=== PATIENT | female | born 1985 | race Caucasian/White ===

== ENCOUNTER 2016-07-08 07:49 | Emergency (ER) | payer MEDICAID ==
[~2016-07-08] VITALS: Ht 157.5 cm; Wt 78.0 kg
[~2016-07-08 07:49] MED LIST: ALBU8.5H3 INH; GUAI118L94 PO
[2016-07-08 07:54] VITALS: Ht 157.5 cm; Wt 78.0 kg
[2016-07-08] MEDS ORDERED: IBUP800T25 PO (08:31)
[2016-07-08] MEDS ORDERED: UDROBDM PO (08:31)
[2016-07-08] MEDS ORDERED: SODI126M NASAL (08:32)
[2016-07-08] MEDS ORDERED: ACET500C5 PO (08:32)
[2016-07-08] MEDS ORDERED: HYDR-906 PO (08:34)
--- NOTE | 2016-07-08 08:39 | ERD ---
ER Documentation Chief Complaint Date/Time DATE: 07/08/16 TIME: 08:36 Chief Complaint flu like symptoms x 1 week HPI Patient presents with symptoms consistent with a viral syndrome and the last week. Symptoms include fever, headache, cough, body aches, runny nose. She has taken Advil for the pain. Denies any vomiting or diarrhea ROS All systems reviewed and are negative except as per history of present illness. Medications Home Meds Active Scripts Hydrocodone/Acetaminophen ([place] 5-325 Tablet) 1 Each Tablet, 1 TAB PO Q6H Y for PAIN, #12 TAB Prov:MARIEL DE LA CRUZ PA-C 07/08/16 Sodium Chloride (Saline Nasal Mist) 126 Ml Mist, 1 SPRAY NASAL BID, #1 BOTTLE Prov:MARIEL DE LA CRUZ PA-C 07/08/16 Acetaminophen* (Tylophen*) 500 Mg Capsule, 1 CAP PO Q6H Y for PAIN AND OR ELEVATED TEMP, #30 CAP Prov:MARIEL DE LA CRUZ PA-C 07/08/16 Guaifenesin-Dextromethorphan* (Robitussin* DM) 100MG/10MG/5ML Syrup, 10 ML PO Q4H Y for COUGH for 5 Days, ML Prov:MARIEL DE LA CRUZ PA-C 07/08/16 Ibuprofen* (Motrin*) 800 Mg Tab, 800 MG PO Q6, #30 TAB Prov:MARIEL DE LA CRUZ PA-C 07/08/16 Albuterol Sulfate* (Proair HFA*) 8.5 Gm Hfa.aer.ad, 2 PUFF INH Q4H Y for WHEEZING AND SOB, #1 INHALER Prov:LAURA MEJIA NP 01/14/16 Guaifenesin-Codeine Phosphate* (Guaifenesin* with Codeine Liq) 120 Ml Liquid, 5 ML PO Q4H for COUGH, #60 ML Prov:LAURA MEJIA NP 01/14/16 Reported Medications [none] Unknown Strength No Conflict Check 01/14/16 Allergies Allergies: Coded Allergies: No Known Allergy (Unverified , 07/08/16) PMhx/Soc Medical and Surgical Hx: pt denies Medical Hx, pt denies Surgical Hx History of Surgery: No Anesthesia Reaction: No Hx Neurological Disorder: No Hx Respiratory Disorders: No Hx Cardiac Disorders: No Hx Psychiatric Problems: No Hx Miscellaneous Medical Probl: No Hx Alcohol Use: No Hx Substance Use: No Hx Tobacco Use: No Smoking Status: Never smoker Physical Exam Vitals Vital Signs Date Time Temp Pulse Resp B/P Pulse Ox O2 Delivery O2 Flow Rate FiO2 07/08/16 07:54 98.1 85 20 139/60 99 Physical Exam Const: No acute distress Head: Atraumatic Eyes: Normal Conjunctiva ENT: Ears TMs normal. Nose no drainage. Throat no erythema no exudate Neck: Full range of motion..~ No meningismus. Resp: Clear to auscultation bilaterally. No absent breath sounds. No wheezing. Cardio: Regular rate and rhythm, no murmurs Abd: Soft, non tender, non distended. Normal bowel sounds Skin: No petechiae or rashes Neur: Awake and alert Psych: Normal Mood and Affect Procedures/MDM This a 30-year-old female who presents to the emergency department today with flulike symptoms for the past week. Patient is here in the exam room with her 3 children who also have similar symptoms. I have low suspicion for strep pharyngitis, peritonsillar abscess, retropharyngeal abscess, otitis media, PNA, sinusitis, abscess, meningitis, sepsis, or other acute infectious bacterial process. Do not feel the patient requires laboratory work or imaging. She is afebrile here in the emergency department. Her respirations are 20 and oxygen saturation is 99%. Given that the patient has had symptoms for a week I will not treat her with Tamiflu and will treat her medically. She was given a prescription for Tylenol, Motrin, Oconto, Robitussin, and nasal saline At this time the patient is stable for discharge and outpatient management. They should follow up with their PCP in the next 1-2. They may return to the emergency department sooner if symptoms persist or worsen. Patient understood and agreed with the plan. Departure Diagnosis: Primary Impression: Influenza-like symptoms Condition: Fair Patient Instructions: Influenza (Adult) [facility]errals: [facility] Usted se park hecho un examen mdico de control que le indica que no est en luz condicin que requiera tratamiento urgente en el Departamento de Emergencia. Un estudio ms profundo y el tratamiento de rodrigez condicin pueden esperar sin ningn riesgo hasta que usted sea atendida/o en el consultorio de rodrigez mdico o luz cl gladis. Es responsabilidad suya arreglar luz carmine para el seguimiento del priscilla. MANEJO DE CONDICIONES NO URGENTES EN EL FUTURO 1) Si usted tiene un mdico de atencin primaria: Usted debera llamar a rodrigez mdico de atencin primaria antes de venir al departamento de emergencia. Despus de las horas de consultorio, rodrigez doctor o rodrigez asociado/a est disponible por telfono. El mdico o enfermero de mellissa en el servicio telefnico puede asesorarle por khalida medio para atender el problema, o priscilla contrario se puede programar luz carmine. 2) Si usted no tiene un mdico de atencin primaria: Llame al mdico o clnica de referencia que aparece abajo nitesh las horas de consultorio para hacer luz carmine para que le vean. CLINICAS: [facility] [phone] [facility] [phone] [address] [facility]. [facility] [phone] [address] [facility] [place] [id number] [phone] [facility] [place] [id number] [phone] [facility]. [phone] [address] Additional Instructions: Llame al doctor MAANA y misael luz CARMINE PARA DENTRO DE 1-2 PATEL.Dgale a la secretaria que nosotros le instruimos hacer esta carmine.Avise o llame si rodrigez condicin se empeora antes de la carmine. Regresa aqui si peor o no mejor. Oconto for severe headache or body ache Tylenol every 4 hours or Motrin every 6 hours for fever Saline for runny nose Robitussin for cough MARIEL DE LA CRUZ PA-C Jul 08, 2016 08:39
== END 2016-07-08 09:48 | disposition home or self-care (01) ==
LOC: FTE 07:49
DX: R50.9 Fever, unspecified (principal); R51 Headache; R05 Cough; R09.89 Other specified symptoms and signs involving the circulatory and respiratory systems
CPT/HCPCS: 99283

== ENCOUNTER 2016-10-08 04:51 | Emergency (ER) | payer MEDICAID ==
[~2016-10-08] VITALS: Ht 172.7 cm; Wt 80.0 kg
[~2016-10-08 04:51] MED LIST changes: +ACET500C5 PO; +HYDR-906 PO; +IBUP800T25 PO; +SODI126M NASAL; +UDROBDM PO
[2016-10-08 05:06] VITALS: Ht 172.7 cm; Wt 80.0 kg
--- NOTE | 2016-10-08 05:25 | ERD ---
ER Documentation Chief Complaint Date/Time DATE: 10/08/16 TIME: 05:24 Chief Complaint Sore Throat x5 days with fever HPI Patient is a 31-year-old female who presents to the ED with sore throat 5 days. She complains of tactile fevers at home. Denies headache or dizziness. Denies abdominal pain, nausea, vomiting or diarrhea. States that her son has had a cold at home. Denies chest pain, cough or shortness of breath or difficulty breathing. Denies leg pain or swelling. She has taken ibuprofen for her symptoms no other medicines. No other complaints. ROS All systems reviewed and are negative except as per history of present illness. Medications Home Meds Active Scripts Ibuprofen* (Motrin*) 800 Mg Tab, 800 MG PO Q6, #30 TAB Prov:JULIO RUIZ PA-C 10/08/16 Acetaminophen* (Tylophen*) 500 Mg Capsule, 1 CAP PO Q6H Y for PAIN AND OR ELEVATED TEMP, #20 CAP Prov:JULIO RUIZ PA-C 10/08/16 Hydrocodone/Acetaminophen ([place] 5-325 Tablet) 1 Each Tablet, 1 TAB PO Q6H Y for PAIN, #12 TAB Prov:MARIEL DE LA CRUZ PA-C 07/08/16 Sodium Chloride (Saline Nasal Mist) 126 Ml Mist, 1 SPRAY NASAL BID, #1 BOTTLE Prov:MARIEL DE LA CRUZ PA-C 07/08/16 Acetaminophen* (Tylophen*) 500 Mg Capsule, 1 CAP PO Q6H Y for PAIN AND OR ELEVATED TEMP, #30 CAP Prov:MARIEL DE LA CRUZ PA-C 07/08/16 Guaifenesin-Dextromethorphan* (Robitussin* DM) 100MG/10MG/5ML Syrup, 10 ML PO Q4H Y for COUGH for 5 Days, ML Prov:MARIEL DE LA CRUZ PA-C 07/08/16 Ibuprofen* (Motrin*) 800 Mg Tab, 800 MG PO Q6, #30 TAB Prov:MARIEL DE LA CRUZ PA-C 07/08/16 Albuterol Sulfate* (Proair HFA*) 8.5 Gm Hfa.aer.ad, 2 PUFF INH Q4H Y for WHEEZING AND SOB, #1 INHALER Prov:LAURA MEJIA COTTON LisbethJames [employer]ING [employer] 01/14/16 Guaifenesin-Codeine Phosphate* (Guaifenesin* with Codeine Liq) 120 Ml Liquid, 5 ML PO Q4H for COUGH, #60 ML Prov:LAURA MEJIA COTTON TJames [employer] 01/14/16 Reported Medications [none] Unknown Strength No Conflict Check 01/14/16 Allergies Allergies: Coded Allergies: No Known Allergy (Unverified , 07/08/16) PMhx/Soc History of Surgery: No Anesthesia Reaction: No Hx Neurological Disorder: No Hx Respiratory Disorders: No Hx Cardiac Disorders: No Hx Psychiatric Problems: No Hx Miscellaneous Medical Probl: No Hx Alcohol Use: No Hx Substance Use: No Hx Tobacco Use: No Physical Exam Vitals Vital Signs Date Time Temp Pulse Resp B/P Pulse Ox O2 Delivery O2 Flow Rate FiO2 10/08/16 05:06 100.1 93 18 112/77 97 Physical Exam GENERAL: Well-developed, well-nourished female. Appears in no acute distress. HEAD: Normocephalic, atraumatic. EYES: Pupils are equally reactive bilaterally. EOMs grossly intact. No conjunctival erythema. ENT: Moist mucous membranes. No uvula deviation. No kissing tonsils. Erythematous tonsils with exudates. NECK: Supple. No lymphadenopathy or thyromegaly. No meningismus. negative kernig. negative brudinski. LUNG: Clear to auscultation bilaterally. No rhonchi, wheezing, rales or coarse breath sounds. HEART: Regular rate and rhythm. No murmurs, rubs or gallops. NEUROLOGIC: Alert and oriented. Moving all four extremities. 5/5 strength in all extremities. Normal speech. Steady gait. SKIN: Normal color. Warm and dry. No rashes or lesions. Capillary refill < 2 seconds Results 24 hrs Current Medications Medications (Trade) Dose Ordered Sig/Dino Route PRN Reason Start Time Stop Time Status Last Admin Dose Admin Penicillin G Benzathine (Bicillin La) 1,200,000 units ONCE ONCE IM 10/08/16 05:30 10/08/16 05:31 DC 10/08/16 05:38 Dexamethasone (Decadron) 10 mg ONCE ONCE PO 10/08/16 05:30 10/08/16 05:31 DC 10/08/16 05:38 Procedures/MDM ER COURSE: I kept the patient and/or family informed of laboratory and diagnostic imaging results throughout the emergency room course. MEDICAL DECISION MAKING: This is a 31-year-old female who presents with sore throat 5 days. Vital signs were reviewed. Patient is afebrile. Patient is not hypoxic. Patient is not toxic or ill-appearing. Patient likely has pharyngitis viral versus bacterial etiology. Patient was given a penicillin shot and Decadron. Tolerated well with no adverse reaction. Low suspicion for peritonsillar abscess, mononucleosis, dental abscess. Patient does not show signs of respiratory distress. Patient does not have trismus or drooling and is speaking in full sentences. DISCHARGE: At this time, patient is stable for discharge and outpatient management with no new complaints during the ER course. Patient was sent home with Tylenol and ibuprofen. Patient will be discharged home with instructions to recheck for new or worsening symptoms such as fever, nausea, weakness, LOC and to follow up with primary care in the next 1-2 days. Patient was advised to return to the ER for any new or worsening symptoms. Plan was discussed and patient and/or family understands and agrees. Home instructions were given. Departure Diagnosis: Primary Impression: Sore throat Condition: Stable JULIO RUIZ PA-C Oct 08, 2016 05:25
[2016-10-08] MEDS ORDERED: ACET500C5 PO (05:28)
[2016-10-08] MEDS ORDERED: IBUP800T25 PO (05:28)
[2016-10-08] MEDS ORDERED: PENICILLIN G BENZ 1.2 MIL UNIT SYG IM ONE (05:30)
[2016-10-08] MEDS ORDERED: DEXAMETHASONE 10 MG/ML 1 ML INJ PO ONE (05:30)
== END 2016-10-08 05:52 | disposition home or self-care (01) ==
LOC: FTE 04:51
DX: J02.9 Acute pharyngitis, unspecified (principal)
CPT/HCPCS: J0561; J1100; 96372

== ENCOUNTER 2017-01-03 15:20 | Emergency (ER) | END 2017-01-03 16:04 | disposition home or self-care (01) | DX: R50.9 Fever, unspecified (principal) | CPT/HCPCS: Z7502; Z7610 ==

== ENCOUNTER 2017-04-30 21:05 | Emergency (ER) | payer MEDICAID ==
[~2017-04-30] VITALS: Ht 172.7 cm; Wt 83.3 kg
[~2017-04-30 21:05] MED LIST changes: +AMOX500C2 PO; +IBUP-1542 PO
[2017-04-30 21:09] VITALS: Ht 172.7 cm; Wt 83.3 kg
--- NOTE | 2017-05-01 00:23 | RADRPT ---
PROCEDURE: Chest. CLINICAL INDICATION: Chest pain. TECHNIQUE: Single frontal view of the chest was obtained. COMPARISON: 01/14/2016. FINDINGS: The cardiac silhouette is within normal limits. The aortic arch is unremarkable. There is no focal consolidation, vascular congestion or pleural effusion. There is no pneumothorax. IMPRESSION: No evidence for active cardiopulmonary disease. .Ye Barros MD, Date Time Electronically viewed and signed by .Ye Barros MD, on 05/01/2017 00:23 .T/
--- NOTE | 2017-05-01 00:28 | ERD ---
ER Documentation Chief Complaint Chief Complaint chest pain x 1 week HPI 31-year-old otherwise healthy female complaining of chest pain on the left side she has had for 1 week. Denies any palpitations. Denies any cough. Denies any diaphoresis or unplanned weight loss. No fever. No trauma. Pain is worse with movement or deep inspiration. ROS All systems reviewed and are negative except as per history of present illness. Medications Home Meds Active Scripts Ibuprofen* (Motrin*) 600 Mg Tab, 600 MG PO Q6, #15 TAB Prov:KE SANTIAGO MD 01/03/17 Amoxicillin* (Amoxicillin*) 500 Mg Cap, 500 MG PO TID for 10 Days, CAP Prov:KE SANTIAGO MD 01/03/17 Ibuprofen* (Motrin*) 800 Mg Tab, 800 MG PO Q6, #30 TAB Prov:JULIO RUIZ PA-C 10/08/16 Acetaminophen* (Tylophen*) 500 Mg Capsule, 1 CAP PO Q6H Y for PAIN AND OR ELEVATED TEMP, #20 CAP Prov:JULIO RUIZ PA-C 10/08/16 Hydrocodone/Acetaminophen ([place] 5-325 Tablet) 1 Each Tablet, 1 TAB PO Q6H Y for PAIN, #12 TAB Prov:MARIEL DE LA CRUZ PA-C 07/08/16 Sodium Chloride (Saline Nasal Mist) 126 Ml Mist, 1 SPRAY NASAL BID, #1 BOTTLE Prov:MARIEL DE LA CRUZ PA-C 07/08/16 Acetaminophen* (Tylophen*) 500 Mg Capsule, 1 CAP PO Q6H Y for PAIN AND OR ELEVATED TEMP, #30 CAP Prov:MARIEL DE LA CRUZ PA-C 07/08/16 Guaifenesin-Dextromethorphan* (Robitussin* DM) 100MG/10MG/5ML Syrup, 10 ML PO Q4H Y for COUGH for 5 Days, ML Prov:MARIEL DE LA CRUZ PA-C 07/08/16 Ibuprofen* (Motrin*) 800 Mg Tab, 800 MG PO Q6, #30 TAB Prov:MARIEL DE LA CRUZ PA-C 07/08/16 Albuterol Sulfate* (Proair HFA*) 8.5 Gm Hfa.aer.ad, 2 PUFF INH Q4H Y for WHEEZING AND SOB, #1 INHALER Prov:LAURA MEJIA NP 01/14/16 Guaifenesin-Codeine Phosphate* (Guaifenesin* with Codeine Liq) 120 Ml Liquid, 5 ML PO Q4H for COUGH, #60 ML Prov:LAURA MEJIA [employer]ER 01/14/16 Reported Medications [none] Unknown Strength No Conflict Check 01/14/16 Allergies Allergies: Coded Allergies: No Known Allergy (Unverified , 01/03/17) PMhx/Soc History of Surgery: No Anesthesia Reaction: No Hx Neurological Disorder: No Hx Respiratory Disorders: No Hx Cardiac Disorders: No Hx Psychiatric Problems: No Hx Miscellaneous Medical Probl: No Hx Alcohol Use: Yes (occasional) Hx Substance Use: No Hx Tobacco Use: No Smoking Status: Never smoker FmHx Family History: No diabetes Physical Exam Vitals Vital Signs Date Time Temp Pulse Resp B/P Pulse Ox O2 Delivery O2 Flow Rate FiO2 04/30/17 21:09 98.1 77 20 122/74 100 Physical Exam Const: [] Head: Atraumatic Eyes: Normal Conjunctiva ENT: Normal External Ears, Nose and Mouth. Neck: Full range of motion..~ No meningismus. Resp: Clear to auscultation bilaterally Cardio: Regular rate and rhythm, no murmurs Abd: Soft, non tender, non distended. Normal bowel sounds Skin: No petechiae or rashes Back: No midline or flank tenderness Ext: No cyanosis, or edema Neur: Awake and alert Psych: Normal Mood and Affect Procedures/MDM 31-year-old female presents with chest pain. Patients is alert, oriented, well appearing, and in no distress with normal vital signs. There is no fever, tachycardia, or tachypnea. The differential diagnosis includes but is not limited to acute coronary syndrome acute myocardial infarction, pericarditis, pulmonary embolism, aortic dissection, pneumonia, pleural effusion, pneumothorax , GERD, chest wall pain, and others. Patient is young and lacks any cardiac risk factors and furthermore her EKG is normal sinus rhythm with no evidence of ST elevation or acute ischemic changes and chest x-ray is negative therefore have a low suspicion for cardiac etiology for her symptoms. This is most likely musculoskeletal versus pleuritic chest pain and she is given a prescription for Motrin. Patient counseled regarding my diagnostic impression and care plan. Prior to discharge all questions answered. Pt agrees with treatment plan and understands strict return precautions. Pt is instructed to follow up with primary care provider within 24-48 hours. Precautionary instructions provided including instructions to return to the ER if not improving or for any worsening or changing symptoms or concerns. Departure Diagnosis: Primary Impression: Chest pain Condition: Stable NINA CEDEÑO PA-C May 01, 2017 00:28
[2017-05-01] MEDS ORDERED: IBUP-1542 PO (00:29)
== END 2017-05-01 02:20 | disposition left against medical advice (07) ==
LOC: FTE 21:05
DX: R07.9 Chest pain, unspecified (principal)
CPT/HCPCS: 71010; 93005; Z7502

== ENCOUNTER 2017-07-07 16:08 | Emergency (ER) | END 2017-07-07 18:39 | disposition home or self-care (01) ==

== ENCOUNTER 2018-02-22 11:19 | Emergency (ER) | END 2018-02-22 13:45 | disposition home or self-care (01) ==

== ENCOUNTER 2018-03-29 18:21 | Emergency (ER) | END 2018-03-29 19:42 | disposition home or self-care (01) ==